=== PATIENT | female | born 1980 | race Caucasian/White ===

== ENCOUNTER 2016-10-06 09:49 | Emergency (ER) | payer OTHER ==
[~2016-10-06] VITALS: Ht 162.5 cm; Wt 74.8 kg
[~2016-10-06 09:49] MED LIST: ANAPROX DS550 MG PO; BACTRIM DS 8001 TA1 PO; BIAXIN500 MG PO; CIPROFLOXACIN500 MG PO; DAYPRO600 M1 PO; FLEXERIL10 MG PO; IBUPROFEN; KEFLEX500 MG PO; MOTRIN800 MG PO; NKHM; NO DAILY MEDS; NORCO 10-325 T1 EACH PO; PRILOSEC20 MG PO; ROBAXIN750 MG PO; ROXICET PO
[2016-10-06 09:56] VITALS: BP 106/70
[2016-10-06 10:47] LABS: BASO % 0.5 % (0.0-1.0); EOS % 0.2 % (1.0-4.0); HEMATOCRIT 43.8 % (37.0-47.0); HEMOGLOBIN 14.4 g/dl (12.0-16.0); LYMPH # 0.6 10*3/uL (1.3-4.4); LYMPH % 10.3 % (27.0-41.0); MEAN CELL VOLUME 86.4 fl (81.0-99.0); MEAN CORPUSCULAR HGB 28.4 pg (27.0-31.0); MEAN CORPUSCULAR HGB CONC 32.9 g/dl (33.0-37.0); MONO # 0.7 10*3/uL (0.1-1.0); MONO % 11.6 % (3.0-9.0); NEUT # 4.3 10*3/uL (2.3-7.9); PLATELET COUNT AUTOMATED 244 10*3/uL (130-400); RED BLOOD COUNT 5.07 10*6/uL (4.10-5.10); RED CELL DISTRI WIDTH 13.1 % (0-14.5); WHITE BLOOD COUNT 5.6 10*3/uL (4.8-10.8)
[2016-10-06 11:02] LABS: ALBUMIN 3.5 gm/dl (3.1-4.5); ALKALINE PHOSPHATASE 79 U/L (45-117); BILIRUBIN, DIRECT < 0.1 mg/dL (0.0-0.2); BILIRUBIN, TOTAL 0.3 mg/dl (0.2-1.0); BUN 11 mg/dl (7-24); CARBON DIOXIDE 25 mmol/L (21-32); CHLORIDE 104 mmol/L (98-107); EST GLOM FILT AFRICAN AMERICAN > 60 ml/min; GLUCOSE 77 mg/dL (65-99); POTASSIUM 3.8 mmol/L (3.5-5.1); SGOT/AST 22 IU/L (3-35); SGPT/ALT 26 U/L (12-78); SODIUM 138 mmol/L (136-145); TOTAL PROTEIN 7.8 gm/dL (6.4-8.2)
[2016-10-06] MEDS ORDERED: TAMIFLU45 MG PO ×2 (12:44→13:32)
[2016-10-06] MEDS ORDERED: NORCO 5-325 TA1 EACH PO (13:32)
== END 2016-10-06 13:07 | disposition home or self-care (01) ==
LOC: ED 09:49
PROVIDERS: Emergency Medicine
DX: J11.1 Influenza due to unidentified influenza virus with other respiratory manifestations (principal); J02.9 Acute pharyngitis, unspecified; Z88.0 Allergy status to penicillin

== ENCOUNTER → 2017-12-01 | Outpatient (CLI) | payer BC ==
[~2017-12-01] MED LIST changes: +NORCO 5-325 TA1 EACH PO; +TAMIFLU45 MG PO
== END | disposition home or self-care (01) ==
LOC: RAD 08:35
DX: M54.5 Low back pain (principal)

== ENCOUNTER → 2021-09-24 | Outpatient (CLI) | payer BC ==
[~2021-09-24] MED LIST changes: +NAPROSYN500 MG PO
== END ==
LOC: COVID19 15:59
PROVIDERS: ATTEND Internal Medicine
DX: Z11.52 Encounter for screening for COVID-19 (principal); Z20.822 Contact with and (suspected) exposure to COVID-19

== ENCOUNTER → 2021-09-26 | Outpatient (CLI) | payer BC | END | disposition home or self-care (01) | LOC: COVID19 15:18 | PROVIDERS: ATTEND Internal Medicine | DX: U07.1 COVID-19 (principal) ==

== ENCOUNTER 2021-12-24 16:28 | Emergency (ER) | payer BC ==
[~2021-12-24] VITALS: Ht 162.5 cm; Wt 81.6 kg
[2021-12-24 17:17] VITALS: BP 117/67
[2021-12-24 19:20] LABS: BILIRUBIN Negative (Negative); BLOOD Negative (Negative); CLARITY Clear (Clear); COLOR Yellow (Yellow); GLUCOSE Negative (Negative); KETONE Negative (Negative); LEUKO ESTERASE Negative (Negative); NITRITE Negative (Negative); SPECIFIC GRAVITY 1.025 (1.001-1.030); UROBILINOGEN 0.2 E.U./dl (0.0-1.0)
[2021-12-24 19:28] LABS: BACTERIA 1+; WBC 0-2 wbc/hpf (0-5)
[2021-12-24 19:36] LABS: BASO # 0.1 10*3/uL (0.0-0.1); BASO % 0.5 % (0.0-1.0); EOS # 0.1 10*3/uL (0.0-0.4); EOS % 1.2 % (1.0-4.0); HEMATOCRIT 39.2 % (37.0-47.0); LYMPH % 37.3 % (27.0-41.0); MEAN CELL VOLUME 86.3 fl (81.0-99.0); MEAN CORPUSCULAR HGB 28.6 pg (27.0-31.0); MEAN CORPUSCULAR HGB CONC 33.2 g/dl (33.0-37.0); MEAN PLATELET VOLUME 9.8 fl (9.6-12.3); MONO # 0.8 10*3/uL (0.1-1.0); MONO % 7.5 % (3.0-9.0); NEUT # 5.7 10*3/uL (2.3-7.9); NEUT % 53.2 % (47.0-73.0); PLATELET COUNT AUTOMATED 343 10*3/uL (130-400); RED BLOOD COUNT 4.54 10*6/uL (4.10-5.10); RED CELL DISTRI WIDTH 13.2 % (0-14.5); WHITE BLOOD COUNT 10.7 10*3/uL (4.8-10.8)
[2021-12-24 19:46] LABS: ALKALINE PHOSPHATASE 63 U/L (45-117); BUN 16 mg/dl (7-24); CHLORIDE 104 mmol/L (98-107); CREATININE 0.82 mg/dL (0.55-1.02); LIPASE 126 U/L (73-393); POTASSIUM 3.6 mmol/L (3.5-5.1); SGOT/AST 16 IU/L (3-35); SGPT/ALT 21 U/L (12-78); SODIUM 137 mmol/L (136-145); TOTAL PROTEIN 7.4 gm/dL (6.4-8.2)
[2021-12-24] MEDS ORDERED: DICYCLOMINE HCL10 MG PO (20:31)
== END 2021-12-24 20:40 | disposition home or self-care (01) ==
LOC: ED 16:28
PROVIDERS: Physician Assistant
DX: R10.11 Right upper quadrant pain (principal); Z88.0 Allergy status to penicillin; Z98.51 Tubal ligation status; Z90.89 Acquired absence of other organs

== ENCOUNTER → 2022-01-14 | Outpatient (CLI) | payer BC ==
[~2022-01-14] MED LIST changes: +DICYCLOMINE HCL10 MG PO
== END | disposition home or self-care (01) ==
LOC: US 07:28
PROVIDERS: ATTEND Internal Medicine
DX: N85.4 Malposition of uterus (principal)

== ENCOUNTER → 2022-11-27 | Outpatient (CLI) | payer BC ==
[2022-11-27 08:23] LABS: THYROID STIM HORMONE (HS) 3.718 uIU/ml (0.550-4.780)
[2022-11-28 15:07] LABS: ANTI-DSDNA ANTIBODIES 2 IU/mL (0-9)
== END | disposition home or self-care (01) ==
LOC: LAB 07:32
PROVIDERS: ATTEND Internal Medicine
DX: E03.9 Hypothyroidism, unspecified (principal); R20.2 Paresthesia of skin

== ENCOUNTER → 2022-12-12 | Outpatient (CLI) | payer BC ==
[2022-12-15 14:07] LABS: ANTISCLERODERMA-70 AB <0.2 AI (0.0-0.9)
== END | disposition home or self-care (01) ==
LOC: LAB 08:00
PROVIDERS: ATTEND Internal Medicine
DX: R76.8 Other specified abnormal immunological findings in serum (principal)

== ENCOUNTER → 2023-01-29 | Day surgery (SDC) | payer BC ==
[2023-01-27 09:00] LABS: BUN 19 mg/dl (9-23); CHLORIDE 102 mmol/L (98-107); POTASSIUM 3.9 mmol/L (3.4-5.1)
[~2023-01-29] VITALS: Ht 162.5 cm; Wt 83.9 kg
[~2023-01-29] MED LIST changes: +LEVOTHYROXINE50 MCG PO; +NEURONTIN300 MG PO; +PRILOSEC20 M1 PO
[2023-01-29 06:53] VITALS: BP 87/48
[2023-01-29 07:49] VITALS: BP 88/30
[2023-01-29 08:04] VITALS: BP 82/48
[2023-01-29 08:19] VITALS: BP 86/53
[2023-01-29 08:35] VITALS: BP 96/51
== END | disposition home or self-care (01) ==
LOC: SDC 01-26 09:30
PROVIDERS: ATTEND Orthopaedic Surgery
DX: G56.03 Carpal tunnel syndrome, bilateral upper limbs (principal); K21.9 Gastro-esophageal reflux disease without esophagitis; Z88.0 Allergy status to penicillin; Z79.899 Other long term (current) drug therapy

== ENCOUNTER → 2023-03-14 | Outpatient (CLI) | payer BC ==
[2023-03-16 14:07] LABS: ANTI-DSDNA ANTIBODIES 2 IU/mL (0-9); ANTI-RNP ANTIBODIES <0.2 AI (0.0-0.9); ANTICHROMATIN ANTIBODIES <0.2 AI (0.0-0.9); ANTISCLERODERMA-70 AB <0.2 AI (0.0-0.9); SJOGREN ANTI-SS-A 0.9 AI (0.0-0.9); SJOREN AB, ANTI-SS-B <0.2 AI (0.0-0.9)
== END | disposition home or self-care (01) ==
LOC: LAB 07:09
PROVIDERS: ATTEND Internal Medicine
DX: R76.8 Other specified abnormal immunological findings in serum (principal)

== ENCOUNTER → 2024-04-11 | Outpatient (CLI) | payer BC | END | disposition home or self-care (01) | LOC: MAMMO 08:19 | PROVIDERS: ATTEND Nurse Practitioner Women's Health | DX: Z12.31 Encounter for screening mammogram for malignant neoplasm of breast (principal); R59.0 Localized enlarged lymph nodes; N64.89 Other specified disorders of breast ==

== ENCOUNTER 2025-04-23 09:51 | Emergency (ER) | payer BC ==
[~2025-04-23] VITALS: Ht 165.1 cm; Wt 77.1 kg
[2025-04-23 09:57] VITALS: BP 120/94
[2025-04-23] MEDS ORDERED: Acetaminophen/Oxycodone 5 MG/325 MG TABLET PO ONE (10:10)
[2025-04-23] MEDS ORDERED: CYCLOBENZAPRINE10 MG PO (10:20)
[2025-04-23] MEDS ORDERED: MELOXICAM15 MG PO (10:20)
== END 2025-04-23 10:36 | disposition home or self-care (01) ==
LOC: ED 09:51
DX: M54.12 Radiculopathy, cervical region (principal); Z90.89 Acquired absence of other organs; Z88.0 Allergy status to penicillin